=== PATIENT | male | born 1955 | race Caucasian/White ===

== ENCOUNTER → 2017-06-24 | Outpatient (CLI) | payer MEDICARE ==
--- NOTE | 2017-06-24 14:39 | RADRPT ---
EXAM DATE/TIME: 06/24/2017 00:00 [place] COMPARISON: No previous studies available for comparison. INDICATIONS : Peripheral vascular disease. TECHNIQUE: Five-station segmental examination of the lower extremities was performed pre and post exercise. Pulsed-cuff waveform tracings and pressures were recorded. Ankle-brachial indices and toe-brachial indices were calculated. PRESSURES (mmHg): Pre Exercise: Brachial (arm): Right 114 Left 115 Ankle: Right 110 Left 115 IMANI: Right 0.96 Left 1.00 TBI: Right 0.87 Left 0.63 Post Exercise: Brachial (arm): Left 158 Ankle: Right 123 Left 118 PULSED CUFF WAVEFORMS: Demonstrate normal amplitude bilaterally. CONCLUSION: Unremarkable segmental evaluation of the lower extremities. Carter Helton MD on June 24, 2017 at 14:36 Board Certified Radiologist. This report was verified electronically.
== END ==
LOC: HCAV 12:42
PROVIDERS: ATTEND Internal Medicine Gastroenterology
DX: I70.219 Atherosclerosis of native arteries of extremities with intermittent claudication, unspecified extremity (principal)
CPT/HCPCS: 93924